=== PATIENT | female | born 2000 | race Two or more races ===

== ENCOUNTER 2022-03-20 14:09 | Emergency (ER) | payer MEDICAID, OTHER ==
[~2022-03-20] VITALS: Ht 160 cm; Wt 61.0 kg
[2022-03-20 14:20] VITALS: BP 113/63
[2022-03-20] MEDS ORDERED: LIDOCAINE 1%HCL (LOCAL ANESTH) 10 ML MDV ONE (19:10)
== END 2022-03-20 20:35 | disposition home or self-care (01) ==
LOC: ER 14:09
DX: S61.300A Unspecified open wound of right index finger with damage to nail, initial encounter (principal); W45.0XXA Nail entering through skin, initial encounter; Y93.89 Activity, other specified; Y92.89 Other specified places as the place of occurrence of the external cause; Y99.8 Other external cause status
CPT/HCPCS: 11730; 99284; J2001

== ENCOUNTER 2022-09-28 07:06 | Emergency (ER) | payer MEDICAID ==
[~2022-09-28] VITALS: Ht 160 cm; Wt 66.3 kg
[2022-09-28] MEDS ORDERED: SODIUM CHLORIDE 0.9% 1,000 ML IV ONE (07:45)
[2022-09-28] MEDS ORDERED: ONDANSETRON HCL 4 MG/2 ML VIAL IV ONE (07:45)
[2022-09-28 08:22] LABS: Albumin 3.9 g/dL (3.4-5.0); Calcium 9.2 mg/dL (8.5-10.1); Potassium 3.8 mmol/L (3.5-5.1)
[2022-09-28 08:25] LABS: BUN/Creatinine Ratio 14.5 (10.0-20.0); Bilirubin, Total 1.1 mg/dL (0.2-1.0); CRP High Sensitivity 0.02 mg/dL (< 0.3); Total Protein 7.4 g/dL (6.4-8.2)
[2022-09-28 08:29] LABS: Basophils # (auto) 0 10 ^3/uL (0-0.2); Basophils % (auto) 0.6 % (0.0-2.0); Eosinophils # (auto) 0.2 10 ^3/uL (0-0.8); Eosinophils % (auto) 4.5 % (0.0-7.0); Hematocrit 40.8 % (36.0-46.0); Hemoglobin 13.9 g/dL (12.2-16.2); Lymphocytes # (auto) 1.9 10 ^3/uL (0.4-5.4); Mean Corpuscular Hemoglobin 31.1 pg (28.0-32.0); Mean Corpuscular Hgb Conc. 34.1 g/dL (32.0-36.0); Mean Corpuscular Volume 91.2 fL (80.0-100.0); Monocytes # (auto) 0.3 10 ^3/uL (0-1.3); Monocytes % (auto) 7.2 % (0.0-12.0); Neutrophils # (auto) 2.1 10 ^3/uL (1.6-8.6); Neutrophils % (auto) 45.7 % (37.0-80.0); Nucleated Red Blood Cells % 0.1 %; Red Blood Cells 4.47 10^6/uL (4.0-5.20); Red Cell Distribution Width 12.4 % (11.8-14.3); White Blood Cell 4.5 10^3/uL (4.4-10.8)
[2022-09-28 08:36] LABS: Urine Bacteria FEW /hpf (None Seen); Urine Blood 2+ /uL (Negative); Urine Mucus FEW (None Seen); Urine Specific Gravity 1.032 (1.001-1.035); Urine WBC 3 /hpf (0 - 5)
[2022-09-28] MEDS ORDERED: KETOROLAC TROMETH 60MG/2ML VIAL IV ONE (09:45)
[2022-09-28] MEDS ORDERED: ONDANSETRON ODT 4 MG TAB PO ONE (09:45)
[2022-09-28] MEDS ORDERED: HYDR1TAB97 PO (11:27)
[2022-09-28] MEDS ORDERED: ONDA-144 PO (11:30)
[2022-09-28 12:41] VITALS: BP 118/75
== END 2022-09-28 12:46 | disposition home or self-care (01) ==
LOC: ER 07:06
DX: I88.0 Nonspecific mesenteric lymphadenitis (principal); R94.31 Abnormal electrocardiogram [ECG] [EKG]; Z32.02 Encounter for pregnancy test, result negative
CPT/HCPCS: 36415; 74176; 76830; 76856; 80053; 81001; 81025; 83605; 83690; 85025; 86141; 93005; 96361; 96374; 96375; 99285; J1885; J2405; J7030